=== PATIENT | male | born 1955 | race African-American/Black ===

== ENCOUNTER 2018-08-26 10:41 | Emergency (ER) | payer SELFPAY ==
[~2018-08-26] VITALS: Ht 165.1 cm; Wt 78.0 kg
[2018-08-26 10:55] VITALS: BP 138/90
== END 2018-08-26 12:22 | disposition home or self-care (01) ==
LOC: ER 10:41
DX: S46.912A Strain of unspecified muscle, fascia and tendon at shoulder and upper arm level, left arm, initial encounter (principal); V49.88XA Car occupant (driver) (passenger) injured in other specified transport accidents, initial encounter; Y93.89 Activity, other specified; Y92.89 Other specified places as the place of occurrence of the external cause; Y99.8 Other external cause status
CPT/HCPCS: 99281